=== PATIENT | female | born 1990 ===

== ENCOUNTER 2019-03-12 09:44 | Inpatient (IN) ==
[2019-03-12] MEDS ORDERED: ceFAZolin 2,000 MG in PREMIX 1 EACH IV ONE (11:45)
[2019-03-12] MEDS ORDERED: CITRIC ACID/SODIUM CITRATE 30 ML UDCUP PO ONE (11:46)
[2019-03-12] MEDS ORDERED: FAMOTIDINE 20 MG/2 ML VIAL IV ONE (11:46)
[2019-03-12] MEDS ORDERED: OXYTOCIN 10 UNIT/ML VIAL IM ONE (11:47)
[2019-03-12] MEDS ORDERED: OXYTOCIN/LR 20 UNIT/1,000 ML BAG IV ONE ×2 (11:47→15:23)
[2019-03-12 12:15] LABS: Basophils # 0.1 10*3/uL (0.0-0.2); Basophils % 0.3 % (0.0-0.8); Hematocrit 25.4 VOL% (35.7-47.0); Hemoglobin 8.5 GM/DL (12.0-16.0); Immature Granulocytes % 5.7 %; Immature Granulocytes Absolute 1.13 #; Lymphocytes # 0.2 10*3/uL (1.4-4.0); Lymphocytes % 0.9 % (21.3-54.2); Mean Corpuscular HGB Conc 33.5 GM/DL (32-36); Mean Corpuscular Volume 89.1 FL (87-102); Mean Platelet Volume 10.5 FL (9.6-12.0); Monocytes % 2.5 % (1.7-12.7); Neutrophils % 90.6 % (38.7-73.9); Platelet Count 239 T/CUMM (130-400); Red Blood Count 2.85 MC/CUMM (3.8-5.5); Red Cell Distribution Width 14.4 % (9.3-17.3); White Blood Count 19.7 T/CUMM (4-12)
[2019-03-12 12:22] LABS: INR 0.8; PT Patient Result 9.1 SECS (9.6-12.2)
[2019-03-12 12:42] LABS: Albumin 1.1 G/DL (3.4-5.0); Bilirubin,Total 0.5 MG/DL (0.2-1.0); Calcium 8.8 MG/DL (8.5-10.1); Osmolality,Calculated 286.5 MOS/KG (273-304); Total Protein 6.3 G/DL (6.4-8.3)
[2019-03-12] MEDS: LACTATED RINGERS 1,000 ML IV SCH ×2 (12:49→14:09)
[2019-03-12 13:00] LABS: Band Neutrophils 22 % (0-10); Lymphocytes 1 % (20-55); Platelet Estimate Normal; Segmented Neutrophils 74 % (50-85); Total Cells Counted 100
[2019-03-12 13:01] LABS: Anisocytosis 1+; Macrocytosis Slight
[2019-03-12] MEDS ORDERED: DEXAMETHASONE 4 MG/1 ML VIAL ONE ×2 (13:33→15:41)
[2019-03-12] MEDS ORDERED: BUPIVACAINE 0.5% 50 ML VIAL ONE (13:33)
[2019-03-12 13:37] LABS: Amorphous Crystals,Urine Occasional /HPF (Few); Apearance,Urine CLOUDY (Clear); Bacteria,Urine Occasional /HPF (Few); Bilirubin,Urine Negative (Negative); Blood, Urine Small mg/dL (Negative); Glucose,Urine (UA) 50 mg/dL (Negative); Hyaline Casts,Urine 9 /LPF (0-3); Ketones,Urine Negative (Negative); Nitrite,Urine Negative (Negative); Protein,Urine >=500 MG/DL; Squamous Epithelial Cell,Urine Occasional /HPF (0-10); Transitional Epi Cells,Urine Few /HPF (<1); Urine Color Yellow (Yellow); Urine Specific Gravity 1.014 (1.001-1.035); Urine Urobilinogen < 2.0 EU/DL (0.2-1.0); WBC,Urine 207 /HPF (0-6)
[2019-03-12] MEDS ORDERED: miSOPROStol 200 MCG TABLET ONE ×2 (13:46→15:37)
[2019-03-12] MEDS ORDERED: TRANEXAMIC ACID 1,000 MG/10 ML VIAL ONE (13:46)
[2019-03-12] MEDS ORDERED: METHYLERGONOVINE 0.2 MG/1 ML AMP ONE (13:47)
[2019-03-12] MEDS ORDERED: CARBOPROST TROMETHAMINE 250 MCG/ML AMP IM ONE (13:47)
[2019-03-12] MEDS ORDERED: RHO(D) IMMUNE GLOBULIN 300 MCG SYRINGE IM ONE (15:23)
[2019-03-12] MEDS ORDERED: ACETAMINOPHEN 325 MG TABLET PO PRN (15:23)
[2019-03-12] MEDS ORDERED: ONDANSETRON 4 MG/2 ML VIAL IV PRN (15:23)
[2019-03-12] MEDS ORDERED: DEXTROSE 10% 250 ML BAG IV PRN (15:23)
[2019-03-12] MEDS ORDERED: GLUCAGON 1 MG VIAL IM PRN ×2 (15:23→18:45)
[2019-03-12] MEDS ORDERED: LACTATED RINGERS 1,000 ML IV SCH (15:30)
[2019-03-12] MEDS ORDERED: PROPOFOL 200 MG/20 ML VIAL IV ONE (15:40)
[2019-03-12] MEDS ORDERED: SEVOFLURANE 1 UNIT/15 MINUTE INH ONE (15:40)
[2019-03-12] MEDS ORDERED: SUCCINYLCHOLINE 200 MG/10 ML VIAL ONE (15:41)
[2019-03-12] MEDS ORDERED: MIDAZOLAM 2 MG/2 ML VIAL ONE (15:41)
[2019-03-12] MEDS ORDERED: ONDANSETRON 4 MG/2 ML VIAL ONE (15:41)
[2019-03-12] MEDS ORDERED: PHENYLEPHRINE 1 MG/10 ML SYRINGE IV ONE (15:41)
[2019-03-12] MEDS ORDERED: ROCURONIUM 100 MG/10 ML VIAL IV ONE (15:41)
[2019-03-12] MEDS ORDERED: SUFentanil 50 MCG/ML AMP ONE (15:41)
[2019-03-12] MEDS ORDERED: LIDOCAINE 2% 5 ML VIAL ONE (15:42)
[2019-03-12] MEDS: HYDROmorphone 2 MG/1 ML VIAL IV PRN ×2 (16:45→23:20)
[2019-03-12] MEDS ORDERED: DEXTROSE 50% 25 GM/50 ML VIAL IV PRN (18:45)
[2019-03-12] MEDS ORDERED: ceFAZolin 2,000 MG in SYRINGE 1 EACH IV SCH (20:00)
[2019-03-12] MEDS ORDERED: ceFAZolin 1,000 MG in SYRINGE 1 EACH IV SCH (21:00)
[2019-03-12] MEDS ORDERED: FUROSEMIDE 40 MG/4 ML VIAL IV SCH (21:00)
[2019-03-12] MEDS ORDERED: INSULIN REGULAR 100 UNIT/ML SUBCUT SCH (21:00)
[2019-03-12] MEDS ORDERED: CLINDAMYCIN 300 MG CAPSULE PO SCH (21:00)
[2019-03-12] MEDS: DOCUSATE SODIUM 100 MG CAPSULE PO SCH (21:24)
[2019-03-12] MEDS: CLINDAMYCIN 300 MG CAPSULE PO SCH (21:24)
[2019-03-12] MEDS: FUROSEMIDE 40 MG/4 ML VIAL IV SCH (21:25)
[2019-03-12] MEDS: FERROUS SULFATE 325 MG TABLET PO SCH (21:32)
[2019-03-12] MEDS: ceFAZolin 2,000 MG in SYRINGE 1 EACH IV SCH (21:52)
[2019-03-12] MEDS: BENZOCAINE/MENTHOL LOZENGE 18/BOX PO PRN (22:19)
[2019-03-12 23:11] LABS: Basophils # 0.1 10*3/uL (0.0-0.2); Basophils % 0.2 % (0.0-0.8); Hematocrit 25.1 VOL% (35.7-47.0); Hemoglobin 8.4 GM/DL (12.0-16.0); Immature Granulocytes % 4.4 %; Immature Granulocytes Absolute 0.93 #; Lymphocytes # 0.3 10*3/uL (1.4-4.0); Lymphocytes % 1.4 % (21.3-54.2); Mean Corpuscular HGB Conc 33.5 GM/DL (32-36); Mean Platelet Volume 10.7 FL (9.6-12.0); Platelet Count 221 T/CUMM (130-400); Red Blood Count 2.82 MC/CUMM (3.8-5.5); Red Cell Distribution Width 14.4 % (9.3-17.3); White Blood Count 21.3 T/CUMM (4-12)
[2019-03-12 23:31] LABS: Band Neutrophils 2 % (0-10); Segmented Neutrophils 98 % (50-85); Total Cells Counted 100
[2019-03-12 23:32] LABS: Microcytosis Slight
[2019-03-12 23:34] LABS: Platelet Estimate Normal; Polychromasia Slight
[2019-03-12] MEDS: INSULIN REGULAR 100 UNIT/ML SUBCUT SCH (23:35)
[2019-03-13] MEDS: FUROSEMIDE 40 MG/4 ML VIAL IV SCH ×2 (03:19→09:35)
[2019-03-13] MEDS: CLINDAMYCIN 300 MG CAPSULE PO SCH ×4 (03:19→20:46)
[2019-03-13] MEDS: ceFAZolin 2,000 MG in SYRINGE 1 EACH IV SCH ×2 (03:25→09:30)
[2019-03-13 05:15] LABS: Basophils % 0.2 % (0.0-0.8); Hematocrit 23.3 VOL% (35.7-47.0); Hemoglobin 7.8 GM/DL (12.0-16.0); Immature Granulocytes % 7.7 %; Immature Granulocytes Absolute 1.42 #; Lymphocytes # 0.3 10*3/uL (1.4-4.0); Lymphocytes % 1.7 % (21.3-54.2); Mean Corpuscular HGB Conc 33.5 GM/DL (32-36); Mean Corpuscular Volume 88.9 FL (87-102); Mean Platelet Volume 10.5 FL (9.6-12.0); Monocytes % 3.1 % (1.7-12.7); Neutrophils % 87.3 % (38.7-73.9); Platelet Count 217 T/CUMM (130-400); Red Blood Count 2.62 MC/CUMM (3.8-5.5); Red Cell Distribution Width 14.2 % (9.3-17.3); White Blood Count 18.4 T/CUMM (4-12)
[2019-03-13] MEDS: INSULIN REGULAR 100 UNIT/ML SUBCUT SCH ×3 (05:42→18:48)
[2019-03-13 05:43] LABS: Band Neutrophils 1 % (0-10); Hypochromasia Slight; Lymphocytes 2 % (20-55); Platelet Estimate Adequate; Segmented Neutrophils 95 % (50-85); Total Cells Counted 100
[2019-03-13 05:44] LABS: Microcytosis Slight
[2019-03-13] MEDS ORDERED: NIFEdipine 10 MG CAPSULE PO ONE (09:00)
[2019-03-13] MEDS: SIMETHICONE CHEW 80 MG TABLET PO PRN (09:39)
[2019-03-13] MEDS: METOCLOPRAMIDE 10 MG TABLET PO PRN (09:39)
[2019-03-13] MEDS: MULTIVITAMIN (PRENATAL) TABLET PO SCH (09:39)
[2019-03-13] MEDS: DOCUSATE SODIUM 100 MG CAPSULE PO SCH ×2 (09:39→20:46)
[2019-03-13] MEDS: FERROUS SULFATE 325 MG TABLET PO SCH ×3 (09:39→20:47)
[2019-03-13] MEDS: MAGNESIUM HYDROXIDE SUSP 30 ML UDCUP PO PRN ×2 (09:40→20:46)
[2019-03-13] MEDS ORDERED: PERMETHRIN 5% CREAM 60 GM TUBE TOP ONE (12:49)
[2019-03-13 12:52] LABS: Calcium 8.4 MG/DL (8.5-10.1); Osmolality,Calculated 290.5 MOS/KG (273-304)
[2019-03-13] MEDS: BENZOCAINE/MENTHOL LOZENGE 18/BOX PO PRN (15:00)
[2019-03-13] MEDS: IBUPROFEN 800 MG TABLET PO PRN (15:27)
[2019-03-13] MEDS ORDERED: CLINDAMYCIN 300 MG CAPSULE PO SCH (21:00)
[2019-03-14] MEDS: INSULIN REGULAR 100 UNIT/ML SUBCUT SCH ×3 (00:17→11:28)
[2019-03-14] MEDS: CLINDAMYCIN 300 MG CAPSULE PO SCH ×4 (03:30→20:30)
[2019-03-14] MEDS: MUPIROCIN 2% OINT 22 GM TUBE TOP SCH ×4 (03:45→22:01)
[2019-03-14] MEDS: IBUPROFEN 800 MG TABLET PO PRN ×2 (04:03→16:58)
[2019-03-14 05:10] LABS: Basophils # 0.1 10*3/uL (0.0-0.2); Basophils % 0.4 % (0.0-0.8); Eosinophils # 0.2 10*3/uL (0.0-0.87); Eosinophils % 1.3 % (0.00-10.9); Hematocrit 22.7 VOL% (35.7-47.0); Hemoglobin 7.4 GM/DL (12.0-16.0); Immature Granulocytes % 3.8 %; Immature Granulocytes Absolute 0.65 #; Lymphocytes # 0.7 10*3/uL (1.4-4.0); Lymphocytes % 4.2 % (21.3-54.2); Mean Corpuscular HGB Conc 32.6 GM/DL (32-36); Mean Corpuscular Volume 91.9 FL (87-102); Mean Platelet Volume 10.5 FL (9.6-12.0); NRBC # 0.07 10*3/uL; Neutrophils % 85.3 % (38.7-73.9); Platelet Count 258 T/CUMM (130-400); Red Blood Count 2.47 MC/CUMM (3.8-5.5); Red Cell Distribution Width 14.5 % (9.3-17.3); White Blood Count 17.1 T/CUMM (4-12)
[2019-03-14 06:13] LABS: Band Neutrophils 2 % (0-10); Eosinophils 2 % (0-10); Myelocytes 2 %; Segmented Neutrophils 94 % (50-85); Total Cells Counted 100
[2019-03-14 06:14] LABS: Anisocytosis 1+; Platelet Estimate Adequate
[2019-03-14 06:41] LABS: Calcium 7.8 MG/DL (8.5-10.1); Osmolality,Calculated 292.4 MOS/KG (273-304)
[2019-03-14] MEDS: DOCUSATE SODIUM 100 MG CAPSULE PO SCH ×2 (08:42→21:07)
[2019-03-14] MEDS: METOCLOPRAMIDE 10 MG TABLET PO PRN ×2 (08:43→15:17)
[2019-03-14] MEDS: SIMETHICONE CHEW 80 MG TABLET PO PRN (08:46)
[2019-03-14] MEDS: MULTIVITAMIN (PRENATAL) TABLET PO SCH (08:46)
[2019-03-14] MEDS: FERROUS SULFATE 325 MG TABLET PO SCH ×3 (08:46→20:30)
[2019-03-14] MEDS: MAGNESIUM HYDROXIDE SUSP 30 ML UDCUP PO PRN (08:47)
[2019-03-14] MEDS ORDERED: SODIUM CHLORIDE 0.9% 1,000 ML IV PRN (09:44)
[2019-03-15] MEDS: INSULIN REGULAR 100 UNIT/ML SUBCUT SCH ×2 (00:05→14:04)
[2019-03-15] MEDS: CLINDAMYCIN 300 MG CAPSULE PO SCH ×3 (04:09→15:00)
[2019-03-15] MEDS: IBUPROFEN 800 MG TABLET PO PRN (04:42)
[2019-03-15 07:29] LABS: Basophils # 0.1 10*3/uL (0.0-0.2); Basophils % 0.6 % (0.0-0.8); Eosinophils # 0.3 10*3/uL (0.0-0.87); Eosinophils % 2.5 % (0.00-10.9); Hematocrit 34.5 VOL% (35.7-47.0); Hemoglobin 11.5 GM/DL (12.0-16.0); Immature Granulocytes Absolute 0.82 #; Lymphocytes # 1.2 10*3/uL (1.4-4.0); Mean Corpuscular HGB Conc 33.3 GM/DL (32-36); Mean Corpuscular Volume 90.1 FL (87-102); Mean Platelet Volume 10.1 FL (9.6-12.0); Monocytes % 8.5 % (1.7-12.7); Neutrophils % 73.4 % (38.7-73.9); Platelet Count 267 T/CUMM (130-400); Red Blood Count 3.83 MC/CUMM (3.8-5.5); Red Cell Distribution Width 14.4 % (9.3-17.3); White Blood Count 13.7 T/CUMM (4-12)
[2019-03-15 07:55] LABS: Calcium 7.9 MG/DL (8.5-10.1)
[2019-03-15 08:25] LABS: Lymphocytes 12 % (20-55); Metamyelocytes 1 %; Platelet Estimate Normal; Schistocytes Slight; Segmented Neutrophils 83 % (50-85); Total Cells Counted 100
[2019-03-15] MEDS: MULTIVITAMIN (PRENATAL) TABLET PO SCH (09:48)
[2019-03-15] MEDS: FERROUS SULFATE 325 MG TABLET PO SCH (09:48)
[2019-03-15] MEDS: DOCUSATE SODIUM 100 MG CAPSULE PO SCH (09:49)
[2019-03-15] MEDS ORDERED: FUROSEMIDE 40 MG/4 ML VIAL IV ONE (12:57)
[2019-03-15 13:57] VITALS: BP 133/68
[2019-03-15] MEDS: MUPIROCIN 2% OINT 22 GM TUBE TOP SCH (15:52)
== END 2019-03-15 16:00 | disposition home or self-care (01) | DRG 540 ==
LOC: N.LDOUT 09:44 → N.LD 09:45 → N.OB 17:44
PROVIDERS: ADMIT Obstetrics & Gynecology; ATTEND Obstetrics & Gynecology
PROC: LDCSECT (ICD-10-PCS; 2019-03-12 14:36)

== ENCOUNTER 2020-07-14 15:10 | Inpatient (IN) ==
[2020-07-14] MEDS ORDERED: HYDROmorphone 2 MG/1 ML VIAL IV PRN (15:17)
[2020-07-14] MEDS ORDERED: DEXTROSE 50% 25 GM/50 ML VIAL IV PRN (15:17)
[2020-07-14] MEDS ORDERED: ALBUTEROL/IPRATROPIUM 3 ML NEB RESP TX PRN (15:17)
[2020-07-14] MEDS ORDERED: GLUCAGON 1 MG VIAL IM PRN (15:17)
[2020-07-14] MEDS ORDERED: BISACODYL 5 MG TABLET PO PRN (15:17)
[2020-07-14] MEDS ORDERED: ONDANSETRON 4 MG/2 ML VIAL IV PRN (15:17)
[2020-07-14] MEDS: SODIUM HYPOCHLORITE 0.25% IRRIG 473 ML BOTTLE TOP SCH (16:49)
[2020-07-14] MEDS: LACTATED RINGERS 1,000 ML IV SCH ×2 (17:11→23:42)
[2020-07-14 17:30] LABS: Basophils # 0.1 10*3/uL (0.0-0.2); Eosinophils # 0.1 10*3/uL (0.0-0.87); Eosinophils % 1.7 % (0.00-10.9); Hemoglobin 10.6 GM/DL (12.0-16.0); Immature Granulocytes % 1.5 %; Immature Granulocytes Absolute 0.11 #; Lymphocytes # 0.8 10*3/uL (1.4-4.0); Lymphocytes % 11.5 % (21.3-54.2); Mean Corpuscular HGB Conc 32.1 GM/DL (32-36); Mean Corpuscular Volume 96.5 FL (87-102); Mean Platelet Volume 9.1 FL (9.6-12.0); Monocytes % 9.1 % (1.7-12.7); Neutrophils % 75.2 % (38.7-73.9); Platelet Count 418 T/CUMM (130-400); Red Blood Count 3.42 MC/CUMM (3.8-5.5); Red Cell Distribution Width 13.7 % (9.3-17.3); White Blood Count 7.2 T/CUMM (4-12)
[2020-07-14 17:54] LABS: Alanine Aminotransferase < 9 U/L (13-56); Albumin 3.2 G/DL (3.4-5.0); Alkaline Phosphatase 136 U/L (45-117); Aspartate Amino Transferase 7 U/L (0-37); Bilirubin,Total < 0.39 MG/DL (0.2-1.0); Blood Urea Nitrogen 23 MG/DL (7-18); Calcium 9.3 MG/DL (8.5-10.1); Estimated Glom Filtration Rate 13 ML/MIN; Glucose 198 MG/DL (74-106); Osmolality,Calculated 273.5 MOS/KG (273-304)
[2020-07-14] MEDS: INSULIN LISPRO 100 UNIT/ML SUBCUT SCH ×2 (18:06→22:04)
[2020-07-14] MEDS: PIPERACILLIN/TAZOBACTAM 3,375 MG in SODIUM CHLORIDE 0.9% 100 ML IV SCH (18:06)
[2020-07-14] MEDS ORDERED: VANCOMYCIN INJ 1,250 MG in SODIUM CHLORIDE 0.9% 250 ML IV ONE (22:00)
[2020-07-15] MEDS: PIPERACILLIN/TAZOBACTAM 3,375 MG in SODIUM CHLORIDE 0.9% 100 ML IV SCH (01:29)
[2020-07-15] MEDS: ACETAMINOPHEN 325 MG TABLET PO PRN ×2 (07:23→15:00)
[2020-07-15] MEDS: INSULIN LISPRO 100 UNIT/ML SUBCUT SCH ×2 (07:32→11:37)
[2020-07-15] MEDS: LACTATED RINGERS 1,000 ML IV SCH ×2 (08:05→15:50)
[2020-07-15] MEDS: SODIUM HYPOCHLORITE 0.25% IRRIG 473 ML BOTTLE TOP SCH (08:57)
[2020-07-15] MEDS ORDERED: PANTOPRAZOLE 40 MG TABLET PO SCH (09:00)
[2020-07-15] MEDS ORDERED: ENOXAPARIN 40 MG/0.4 ML SYRINGE SUBCUT SCH (09:00)
[2020-07-15] MEDS ORDERED: cefTAZidime 1,000 MG in SYRINGE 1 EACH IV ONE (10:00)
[2020-07-15 11:43] VITALS: BP 134/74
[2020-07-15] MEDS ORDERED: INSULIN NPH 100 UNIT/ML SUBCUT SCH (16:30)
[2020-07-15] MEDS ORDERED: VANCOMYCIN INJ 500 MG in SODIUM CHLORIDE 0.9% 100 ML IV PRN (17:00)
[2020-07-15] MEDS ORDERED: cilostazoL 50 MG TABLET PO SCH (21:00)
[2020-07-15] MEDS ORDERED: lisinopriL 20 MG TABLET PO SCH (21:00)
[2020-07-16] MEDS ORDERED: INSULIN NPH 100 UNIT/ML SUBCUT SCH (07:30)
[2020-07-16] MEDS ORDERED: CLOPIDOGREL 75 MG TABLET PO SCH (09:00)
[2020-07-16] MEDS ORDERED: FUROSEMIDE 20 MG TABLET PO SCH (09:00)
[2020-07-16] MEDS ORDERED: PIPERACILLIN/TAZOBACTAM 3,375 MG in SODIUM CHLORIDE 0.9% 100 ML IV SCH (16:00)
[2020-07-16] MEDS ORDERED: VANCOMYCIN INJ 1,000 MG in SODIUM CHLORIDE 0.9% 250 ML IV SCH (17:00)
[2020-07-19] MEDS ORDERED: cefTAZidime 1,000 MG in SYRINGE 1 EACH IV SCH (17:00)
== END 2020-07-15 16:20 | disposition home health service (06) | DRG 638 ==
LOC: PREOBSVTOIN 15:30 → N.3E 15:46 → INTOOBSV 15:46
PROVIDERS: ADMIT Student in an Organized Health Care Education/Training Program; ATTEND Student in an Organized Health Care Education/Training Program